=== PATIENT | male | born 1950 | race Caucasian/White ===

== ENCOUNTER 2019-06-02 15:23 | Outpatient (CLI) | payer MEDICARE ==
[2019-07-21] MEDS ORDERED: None at this Time (08:36)
== END 2019-06-02 23:59 | disposition home or self-care (01) ==
LOC: STAR 15:23
PROVIDERS: ATTEND Surgery
DX: Z01.818 Encounter for other preprocedural examination (principal)
CPT/HCPCS: 93005

== ENCOUNTER 2019-07-25 09:20 | Day surgery (SDC) | payer MEDICARE ==
[~2019-07-25] VITALS: Ht 185.4 cm; Wt 108.7 kg
[~2019-07-25 09:20] MED LIST: None at this Time
[2019-07-25] MEDS ORDERED: LACTATED RINGERS 1,000 ML IV SCH (09:36)
[2019-07-25 09:41] VITALS: BP 125/87
[2019-07-25] MEDS ORDERED: CHLORHEXIDINE 15 ML UDC MM ONE (10:00)
[2019-07-25] MEDS ORDERED: LIDOCAINE-MPF 1%, 2ML INFIL ONE (10:00)
[2019-07-25] MEDS ORDERED: MIDAZOLAM 1 MG/ML, 2ML ONE (11:57)
[2019-07-25] MEDS ORDERED: FENTANYL PF 250 MCG/5ML ONE (11:57)
[2019-07-25] MEDS ORDERED: ALBUTEROL SULFATE 2.5 MG/3 ML NPPB PRN (13:00)
[2019-07-25] MEDS ORDERED: ACETAMINOPHEN 325 MG TABLET PO PRN (13:00)
[2019-07-25] MEDS ORDERED: DIAZEPAM 5 MG/ML, 2ML IVPush PRN (13:00)
[2019-07-25] MEDS ORDERED: KETOROLAC 30 MG/1 ML IV PRN (13:00)
[2019-07-25] MEDS ORDERED: LABETALOL 5MG/ML, 20ML IV PRN (13:00)
[2019-07-25] MEDS ORDERED: MEPERIDINE/PF 25MG/0.5ML IVPush PRN (13:00)
[2019-07-25] MEDS ORDERED: HYDROmorphone 1 MG/ML, 1ML INJ IVPush PRN (13:00)
[2019-07-25] MEDS ORDERED: PROMETHAZINE 25 MG/ML, 1ML IV PRN (13:00)
[2019-07-25] MEDS ORDERED: hydrALAzine 20 MG/ML, 1ML IV PRN (13:00)
[2019-07-25] MEDS ORDERED: OXYcodone 5 MG/5 ML ORAL.SOL UDC PO PRN (13:00)
[2019-07-25] MEDS ORDERED: SUCCINYLCHOLINE 20 MG/ML, 10ML ONE (13:23)
[2019-07-25] MEDS ORDERED: ROCURONIUM 10MG/ML,5ML ONE (13:23)
[2019-07-25] MEDS ORDERED: ONDANSETRON 2MG/ML, 2ML ONE (13:23)
[2019-07-25] MEDS ORDERED: GLYCOPYRROLATE 0.2MG/1ML, 5ML ONE (13:23)
[2019-07-25] MEDS ORDERED: NEOSTIGMINE 1 MG/ML, 10ML ONE (13:23)
[2019-07-25] MEDS ORDERED: CEFAZOLIN 1,000 MG ONE (13:23)
[2019-07-25] MEDS ORDERED: KETOROLAC 30 MG/1 ML ONE (13:23)
[2019-07-25] MEDS ORDERED: PROPOFOL 10 MG/ML, 20ML ONE (13:23)
[2019-07-25] MEDS ORDERED: DEXAMETHASONE 4 MG/ML, 1ML ONE (13:23)
[2019-07-25] MEDS ORDERED: SUGAMMADEX 200 MG/2 ML IVPush ONE (13:23)
[2019-07-25] MEDS ORDERED: FENTANYL PF 100 MCG/2ML ONE (13:57)
[2019-07-25] MEDS ORDERED: HYDROmorphone 1 MG/ML, 1ML INJ ONE (13:57)
[2019-07-25] MEDS ORDERED: OXYcodone 5 MG/5 ML ORAL.SOL UDC ONE (13:57)
[2019-07-25] MEDS: FENTANYL PF 100 MCG/2ML IV PRN ×2 (13:58→14:06)
== END 2019-07-25 16:30 | disposition home or self-care (01) ==
LOC: OUT 09:20
PROVIDERS: ATTEND Surgery
DX: K42.0 Umbilical hernia with obstruction, without gangrene (principal); E66.9 Obesity, unspecified
CPT/HCPCS: 49653; C1781; J0330; J0690; J1100; J1885; J2250; J2405; J2704; J3010; J7120; J2710